=== PATIENT | male | born 1955 | race Caucasian/White ===

== ENCOUNTER → 2020-08-27 | Outpatient (REF) | payer OTHER | LOC: M LAB REF 14:06 | PROVIDERS: ATTEND Physician Assistant | DX: L57.0 Actinic keratosis (principal) ==

== ENCOUNTER → 2023-05-10 | Outpatient (REF) | payer MEDICARE, BC | LOC: M SFHCDERM 13:56 | PROVIDERS: ATTEND Physician Assistant | DX: D04.62 Carcinoma in situ of skin of left upper limb, including shoulder (principal); L57.0 Actinic keratosis; R23.4 Changes in skin texture ==

== ENCOUNTER → 2024-02-13 | Outpatient (REF) | payer MEDICARE, BC, OTHER | LOC: M SFHCDERM 18:00 | PROVIDERS: ATTEND Physician Assistant | DX: C44.629 Squamous cell carcinoma of skin of left upper limb, including shoulder (principal) ==